=== PATIENT | female | born 2000 | race African-American/Black ===

== ENCOUNTER 2023-09-04 06:01 | Day surgery (SDC) | payer OTHER, SELFPAY ==
[2023-09-04] VITALS (8 sets, daily range): BP systolic 96–127; BP diastolic 59–87; PULSE 92–121; RESP 12–16; TEMP 36.5–37.4; O2SAT 99–100; BMI 27.6
--- NOTE | 2023-09-04 | HID_PTH ---
PATIENT: RENETTA MCQUEEN [place] [facility] [id number] AGE/SX: 23/ ROOM: RE09/04/[address]: Dr. Jenny Dockery MD : 2000 BED: DIS: 09/04/2023 SPEC #: [id number] RECD: 09/04/23 13:16 STATUS: MEHUL SHEELA #: [id number] FARHANA: 09/04/23 00:[address]: Jenny Dockery DEPT: SURGICAL PATHOLOGY RECD BY: Carroll Kramer ENTERED: 09/04/23 13:18 SP TYPE: Jovita BETTENCOURT DR: Ludivina Primary Care Phys Tissues: Axilla, NOS Procedures: Surgery Specimen Level III HEADER OPERATION: Excision, left axilla hidradenitis PRE-OP DIAGNOSIS: Hidradenitis, left axilla TISSUE SUBMITTED: Left axilla hidradenitis MICROSCOPIC DIAGNOSIS Left axilla hidradenitis, exicison: Consistent with inflamed hidradenitis. / 09/05/2023 MICROSCOPIC DESCRIPTION Slides are reviewed. GROSS DESCRIPTION Received in fixative is one container labeled with the patient's name and designated Left axilla hidradenitis. The specimen consists of an ellipse of light valadez excised skin measuring 1.5 x 0.5cm and a depth of excision measuring 1.0cm. No cutaneous mass lesions are identified. The specimen is serially sectioned and totally submitted in one cassette. / 09/04/23 TC:3 CPT:69078
[2023-09-04 06:27] LABS: Internal QC Validated? YES +Cl - CLEAR BKGD; Pregnancy, Urine Negative Negative
[2023-09-04] MEDS: Lactated Ringers 1,000 ML 15 ML IV (06:31)
--- NOTE | 2023-09-04 07:08 | HP.PCM_ITS ---
History and Physical Date of Admission: 09/04/23 Date of Service: 08/05/23 MR#: [id number] Acct: [id number] Name: RENETTA MCQUEEN Rep #: [id number] : 2000 Provider: Dr. Jenny Dockery MD Age/Sex: 23/F Location: [facility] Status: Signed Intake Vital Signs 08/04/2414:10 Height 5 ft 1 in Weight: 145 lb 6 oz BMI 27.4 BP 129/79 H Blood Pressure Location Rt brachial Position Sitting Respiration 18 Pulse 90 Pulse Source Monitor Temp 97.3 F L Temp Source Temporal Pulse Oximetry (%) 100 Oxygen Delivery Method room air Intake Visit Reasons: HIDRADENITIS SUPPURATIVA - ARMPIT Chief Complaint: hidradenitis suppurativa- L axilla Is patient in pain?: No Allergies No Known Allergies Allergy (Unverified 08/05/23 15:11) Medications minocycline 100 mg capsule mg PO QDAY 08/05/23 [History Confirmed 08/05/23] [facility] Medical History (Updated 08/06/23 @ 11:[address] Jenny Dockery MD) H/O pilonidal cyst Surgical History (Updated 08/05/23 @ 15:10 by Cherrie Posey LPN) History of removal of cyst Social History (Updated 08/05/23 @ 15:10 by Cherrie Posey LPN) Smoking Status: Never smoker alcohol intake: never substance use type: does not use HPI HPI HPI: 23-year-old female presents due to left axillary hidradenitis. Patient has been seen and treated by Dr. Randle with dermatology since beginning of June currently is on minocycline as well as applying clindamycin gel and washing with Dial antibacterial soap. Patient denies any other areas with hidradenitis did have a previous pilonidal that was excised in the past. ROS General General: No weight change, appetite, fatigue, colon cancer, breast cancer or weakness HEENT HEENT: No difficulty swallowing, eye injury, eye surgery, swollen glands or hoarseness Endo Endocrine: No thyroid disease, diabetes mellitus, thyroid cancer, Hair loss, heat intolerance or cold intolerance Skin Skin: No rash or changing moles Musc Musculoskeletal: No back problems, arthritis, rheumatoid arthritis, gout or joint pain Cardio Cardiovascular: No murmur, pacemaker, heart disease, atrial fibrillation, high blood pressure, heart attack, heart stent, palpitations, shortness of breat with exertion or chest pain Psych Psychiatric: No depression, anxiety or hearing voices Resp Respiratory: No shortness of breath, No sleep apnea, No cough, No COPD, No asthma, No emphysema and No wheezing Gastro Gastrointestinal: No abdominal pain, No nausea or vomiting, No diarrhea, No constipation, No blood in stool, No acid reflux, No hemorrhoids, No ulcers, No gallbladder problem and No black,tarry stools [place] Hematologic: No blood thinners, No blood disorders, No bleeding, No anemia and No blood clots Neuro Neurologic: No numbness, No tingling and No weakness Exam Const General: cooperative, healthy appearing, comfortable and no acute distress [facility] Head: normocephalic and atraumatic Neck Neck: supple Resp Effort & Inspection: normal respiratory effort Cardio Rate: regular rate GI Inspection: non-distended Skin Other: Left axilla with some induration mid left axilla about 8 mm in diameter. Rest of the axilla skin appears normal. Neuro General: CN's II-XI intact bilaterally Extrem General: normal to inspection Psych Mental Status: mental status grossly normal Attitude: cooperative Assessment and Plan Assessment and Plan (1) Hidradenitis: Status: Acute Comment: left axilla- localized Plan Discussed with patient the procedure of excision of left axilla hidradenitis including risk not limited to bleeding, infection, recurrent hidradenitis. Patient no further questions this time. Will schedule excision in OR with MAC. Jenny Dockery M.D. Pager: [phone] [facility] [address] [place] [address], [address] [place] [address] Office: [phone] Coding Level of Care Code Off vis,new,level 3 Diagnoses Hidradenitis L73.2 08/06/23 1149 <Electronically signed by Jenny Dockery MD> Date Jenny Dockery MD
[2023-09-04] MEDS: Cefazolin 2 GM in 0.9% Normal Saline (100mL Bag) 100 ML IV (07:28)
[2023-09-04] MEDS: Bupivacaine Mpf 0.5% 30 ML VIAL (07:55)
--- NOTE | 2023-09-04 07:55 | PCM.OPRPT ---
Report of Operation Date of Procedure: 09/04/23 Pre-Operative Diagnosis: Left axillary hidradenitis Post-Operative Diagnosis: Same Surgery/Procedure Performed:: Excision of left axillary hidradenitis Surgeon: Jenny Dockery fixed assets accountant: Emely Baron Type of Anesthesia: General/Supplemental Anesthesiologist: Margarito Fang Special Medications: Ancef 2 g IV x 1 Specimen's removed: left axillary hidradenitis Estimated Blood Loss (mL): < 10 cc Description of Procedure: Patient is brought to operating placed supine on the operating table. A timeout was completed verifying correct patient, site, positioning and special, prior to beginning procedure. Patient's left arm was abducted with appropriate padding. General anesthesia was induced. Patient's left axilla was prepped and draped in usual sterile fashion. An elliptical incision was planned around patient's area of hidradenitis along Langerhans lines. This was made with a 15 blade scalpel. Deepened with electrocautery to an area of grossly normal tissue. Specimen sent to pathology. Incision was irrigated with saline. Hemostasis was achieved with electrocautery. Incision was closed with 3 oh subdermal Vicryl sutures and skin was closed with 4-0 Monocryl. Dermabond was also placed. Patient tolerated procedure well and taken to postanesthesia care unit in stable condition. Complications none
--- NOTE | 2023-09-04 07:59 | DCINST_ITS ---
Discharge Instructions Diet Discharge Diet: No restrictions Activity Discharge Activity: May Not Drive (If taking narcotics) and May Shower Additional Activity Instructions:: Avoid strenuous activity involving the left arm for 2 to 3 days Dressing / Incision Call your doctor if your incision/area has: Continuous Slow Oozing, Sudden Increased Bleeding, Increased Pain/ Swelling, Increased Redness and Foul Smelling Discharge Additional Dressing/Incision Instructions:: Dermabond is placed. This may start to peel in 5 to 7 days which is normal. Follow Up Care Please Follow Up With: Jenny Dockery MD When: Call the office for a follow-up appointment in 2 weeks. [phone]-. Any concerns or questions after 5 PM or on the weekends call [phone]. Test Results: Test results from this visit will be discussed in further detail at your follow- up appointment, if applicable. Discharge Plan Admission Attending Provider: Jenny Dockery Primary Care Provider: Care Physician,No Primary Instructions Print Language: Cook Islander Discharge Orders/Prescriptions Prescriptions: New tramadol 50 mg tablet 50 mg PO Q6H PRN (Reason: pain) Qty: 5 0RF Continued fexofenadine [Ada Allergy] 60 mg tablet 60 mg PO DAILY Daily Multiple For Women 18 mg iron-400 mcg-500 mg Ca tablet 1 tab PO DAILY albuterol sulfate 90 mcg/actuation HFA aerosol inhaler 2 inh inhalation Q8H PRN (Reason: shortness of breath or wheezing) Disposition Disposition (needs filled in before D/C Order can be placed): Home, Self Care
== END 2023-09-04 10:53 | disposition home or self-care (01) ==
LOC: SDC 06:01 → AC 06:02
PROVIDERS: Anesthesiology; Referring Provider Surgery; Visit Provider Surgery
PROC: (CPT 38500; principal; 2023-09-04 07:15)
DX: L73.2 Hidradenitis suppurativa (principal)
CPT/HCPCS: 11450; 00400; 81025; 88304; J7120; J2405

== ENCOUNTER 2023-12-15 19:46 | Emergency (ER) | payer OTHER, SELFPAY ==
[2023-12-15 19:47] VITALS: BP 120/78; PULSE 94; RESP 16; TEMP 36.8; O2SAT 99; BMI 26.9
--- NOTE | 2023-12-15 22:20 | ED.RN ---
lwbs [id number]
== END 2023-12-15 22:15 | disposition left against medical advice (07) ==
LOC: ED 22:27
DX: R51.9 Headache, unspecified (principal)

== ENCOUNTER 2024-02-16 17:52 | Emergency (ER) | payer OTHER, SELFPAY ==
[2024-02-16 17:54] VITALS: BP 120/77; PULSE 130; RESP 18; TEMP 37.6; O2SAT 100; BMI 26.7
--- NOTE | 2024-02-16 18:05 | CM.ED ---
Social Work Reason for visit: No PCP listed Patient verified that she does not currently have a PCP, resource list provided of local physicians. Patient appreciative of information. No other concerns identified. Gabriella Moreno, DENTAL LABORATORY TECHNOLOGY TEACHER, LIGHT BULB ASSEMBLER
--- NOTE | 2024-02-16 18:17 | EDS_ITS ---
HPI <JUAN Presley - Last Filed: 02/16/24 21:31> History of Present Illness Chief Complaint: Chest Pain Narrative Narrative: 23-year-old female approximately 19 weeks states of the last few days she has had a cold with a lot of congestion, sneezing, and coughing. When she coughs she has chest pain. She is felt mildly short of breath and states she has a history of exercise-induced asthma and tried her inhaler but it is . She went to urgent care and they told her she had a fever with an ear thermometer and that her heart rate was elevated in the 130s and sent her in for evaluation. She states she felt very tired today and has not been eating or drinking much. Denies vomiting or diarrhea. Her has been progressing without issue so far and she has had a normal ultrasound and she denies abdominal pain or vaginal bleeding. [facility] <JUAN Presley - Last Filed: 02/16/24 21:31> [facility] Medical History (Updated 02/16/24 @ 19:56 by JUAN Presley) Wears glasses Alcohol use Migraine headache Loss of consciousness Syncope Seizures Asthma Non-smoker H/O pilonidal cyst Home Medications ?Medication ?Instructions ?Recorded ?Last Taken ?Type albuterol sulfate 90 mcg/actuation 2 inh inhalation Q8H PRN shortness 08/26/23 Unknown History aerosol inhaler of breath or wheezing multivit-iron 18 mg-folic acid 400 1 tab PO DAILY 08/26/23 09/03/23 History mcg-calcium 500 mg-minerals tablet (Daily Multiple For Women) albuterol sulfate 90 mcg/actuation 1 - 2 puff inhalation Q4H PRN PRN 02/16/24 Unknown Rx aerosol inhaler (Ventolin HFA) Wheezing #1 device aspirin 81 mg tablet,delayed 81 mg PO DAILY 02/16/24 Unknown History release doxylamine 10 mg-pyridoxine (vit 2 tab PO BID 02/16/24 Unknown History B6) 10 mg tablet,delayed release loratadine 10 mg tablet (Claritin) 10 mg PO DAILY 02/16/24 Unknown History ondansetron 4 mg disintegrating 4 mg PO Q8H PRN PRN nausea/vomiting 02/16/24 Unknown History tablet Allergy/AdvReac Type Severity Reaction Status Date / Time No Known Allergies Allergy Verified 12/15/23 19:49 Surgical History Hidradenitis History of removal of cyst Social History (Updated 08/05/23 @ 15:10 by Cherrie Posey LPN) Smoking Status: Never smoker alcohol intake: never substance use type: does not use ROS <JUAN Presley - Last Filed: 02/16/24 21:31> ROS ED ROS Narrative Constitutional: Positive for chills, malaise. ENT: Positive for rhinorrhea, ear pain. CVS: Negative for palpitations, syncope. Respiratory: Positive for cough. Negative for shortness of breath. GI: Negative for abdominal pain, nausea, vomiting, diarrhea. EXAM <JUAN Presley - Last Filed: 02/16/24 21:31> Physical Exam Narrative Exam Narrative: CONST: Patient sitting in no acute distress. EYES: Normal inspection. ENT: Normal inspection, moist mucous membranes. Clear rhinorrhea, normal TMs bilaterally. NECK: Normal inspection. Neck supple, no meningismus. RESP: No respiratory distress, mild expiratory wheeze throughout. CVS: Tachycardic with regular rhythm, no murmur, no gallop. ABD: Soft and nontender, no guarding or rebound, nondistended. SKIN: Color normal, no rash, warm, dry, intact. EXTREMITIES: Normal appearance, no pedal edema. NEURO: Alert and answering questions appropriately. PSYCH: Normal affect. Const Vital Signs: 02/16/24 17:54 02/16/24 18:22 02/16/24 18:25 Temperature 99.7 F H 98.7 F Temperature Source Oral Oral Pulse Rate 130 H Respiratory Rate 18 Respiratory Effort Normal Non-Labored Respiratory Pattern Blood Pressure 120/77 Blood Pressure Mean 91 Pulse Ox 100 Oxygen Delivery Method Room Air 02/16/24 18:44 02/16/24 20:00 02/16/24 21:00 Temperature Temperature Source Pulse Rate 113 H 124 H 119 H Respiratory Rate 20 H 19 H 12 Respiratory Effort Respiratory Pattern Normal Blood Pressure 123/69 H 113/84 H Blood Pressure Mean 87 93 Pulse Ox Oxygen Delivery Method Room Air 02/16/24 21:28 Temperature 98 F Temperature Source Pulse Rate 122 H Respiratory Rate 16 Respiratory Effort Respiratory Pattern Blood Pressure 110/80 Blood Pressure Mean 90 Pulse Ox 98 Oxygen Delivery Method <Dr. Walt Mcknight DO - Last Filed: 02/17/24 01:24> Physical Exam Const Vital Signs: 02/16/24 17:54 02/16/24 18:22 02/16/24 18:25 Temperature 99.7 F H 98.7 F Temperature Source Oral Oral Pulse Rate 130 H Respiratory Rate 18 Respiratory Effort Normal Non-Labored Respiratory Pattern Blood Pressure 120/77 Blood Pressure Mean 91 Pulse Ox 100 Oxygen Delivery Method Room Air 02/16/24 18:44 02/16/24 20:00 02/16/24 21:00 Temperature Temperature Source Pulse Rate 113 H 124 H 119 H Respiratory Rate 20 H 19 H 12 Respiratory Effort Respiratory Pattern Normal Blood Pressure 123/69 H 113/84 H Blood Pressure Mean 87 93 Pulse Ox Oxygen Delivery Method Room Air 02/16/24 21:28 Temperature 98 F Temperature Source Pulse Rate 122 H Respiratory Rate 16 Respiratory Effort Respiratory Pattern Blood Pressure 110/80 Blood Pressure Mean 90 Pulse Ox 98 Oxygen Delivery Method MDM <JUAN Presley - Last Filed: 02/16/24 21:31> [facility] Narrative Medical decision making narrative: History gathered from: Patient, spouse Differential included but not limited to viral URI, asthma exacerbation, pneumonia, PE Patient has had URI symptoms over the last few days and chest pain with coughing. She is 19 weeks . She was sent over from urgent care for evaluation due to elevated heart rate. She does appear ill but nontoxic. She is tachycardic at 130 in normal sinus rhythm with otherwise normal vital signs. Oral temp is normal at 98.7. She has rhinorrhea and congestion on exam as well as mild expiratory wheezing and I suspect URI with bronchospasm. Viral swab for COVID/flu/RSV is negative. CBC and BMP were unremarkable. She was treated with IV fluids, DuoNeb, and Tylenol but remained persistently tachycardic. I discussed with her that although I do think this is a URI makes her at higher risk for blood clot and due to persistent tachycardia we should do further testing. D-dimer was high so CT is indicated. I discussed the risks and benefits of this procedure during and she would like to proceed. CTA of the chest shows no blood clot and no pneumonia or other acute process. After 2 L of IV fluids I rechecked the patient at around 9:30 PM her heart rate was 105. She is comfortable going home and following up with her TRADE CLERK. She will continue oral hydration and Tylenol as needed. She was provided a refill of her albuterol inhaler and discharged in stable condition. Lab Data Attestation: I reviewed the patient's lab results. Labs: Laboratory Results - last 24 hr 02/16/24 18:40 WBC 9.6 RBC 4.92 Hgb 12.7 Hct 39.1 MCV 79.5 L MCH 25.8 L MCHC 32.5 RDW Std Deviation 40.6 RDW Coeff of Kenny 14.1 Plt Count 244 MPV 10.7 Immature Gran % (Auto) 0.300 Neut % (Auto) 72.8 H Lymph % (Auto) 12.8 L [place] % (Auto) 9.6 Eos % (Auto) 4.4 Baso % (Auto) 0.1 Absolute Neuts (auto) 7.0 Absolute Lymphs (auto) 1.22 Nucleated RBC % 0 D-Dimer Quant (PE/DVT) 1.34 H* Sodium 136 Potassium 3.5 Chloride 104 Carbon Dioxide 25.0 Anion Gap 7 BUN 5 L Creatinine 0.61 Estim Creat Clear Calc 121.98 Est GFR (MDRD) Af Amer 153 Est GFR (MDRD) Non-Af 127 BUN/Creatinine Ratio 8.2 L Glucose 81 Calcium 9.1 Radiography Diagnostic Testing: Clinical Impression(s) from Imaging Studies Chest CTA 02/16/24 20:32 IMPRESSION: Normal CTA chest examination, without a demonstrated pulmonary embolism or arterial dissection. Electronically Signed: Duarte Quezada MD at 21:22 EST Reading Location ID and State: [facility] / [place] Tel , Service support , EKG Initial EKG: Attestation: I personally reviewed and interpreted this EKG as follows: Comments: Sinus tachycardia at 117 bpm Normal intervals, no acute ischemic changes <Dr. Walt Mcknight, DO - Last Filed: 02/17/24 01:24> MDM MDM Narrative Medical decision making narrative: History gathered from: Patient, spouse Differential included but not limited to viral URI, asthma exacerbation, pneumonia, PE Patient has had URI symptoms over the last few days and chest pain with coughing. She is 19 weeks . She was sent over from urgent care for evaluation due to elevated heart rate. She does appear ill but nontoxic. She is tachycardic at 130 in normal sinus rhythm with otherwise normal vital signs. Oral temp is normal at 98.7. She has rhinorrhea and congestion on exam as well as mild expiratory wheezing and I suspect URI with bronchospasm. Viral swab for COVID/flu/RSV is negative. CBC and BMP were unremarkable. She was treated with IV fluids, DuoNeb, and Tylenol but remained persistently tachycardic. I discussed with her that although I do think this is a URI makes her at higher risk for blood clot and due to persistent tachycardia we should do further testing. D-dimer was high so CT is indicated. I discussed the risks and benefits of this procedure during and she would like to proceed. CTA of the chest shows no blood clot and no pneumonia or other acute process. After 2 L of IV fluids I rechecked the patient at around 9:30 PM her heart rate was 105. She is comfortable going home and following up with her TRADE CLERK. She will continue oral hydration and Tylenol as needed. She was provided a refill of her albuterol inhaler and discharged in stable condition. Supervisory Physician Note Patient was seen and examined with the Advanced Practice Provider. Nursing notes and vital signs have been reviewed. Pertinent old records have been reviewed. I agree with the essential elements of the RO's history, physical exam, assessment, and plan. The differential diagnosis and management options were discussed with the RO. I participated in determining and agree with the management, procedures, final impression and disposition as documented. See changes noted by me. Please see addendum or separate note for any additional details. 23-year-old female who is and 19 weeks presents for evaluation of cold-like symptoms. Endorses congestion, cough, general malaise for past few days. Denies sick contacts. Endorses chest tightness when she coughs but denies true chest pain. Mildly short of breath at times. Has a history of exercise-induced asthma. Not on a maintenance inhaler. Patient endorses a fever of 100.6 and decreased p.o. intake. Denies any headache, nausea, vomiting, diarrhea, dysuria, abdominal pain, vaginal bleeding. Was sent to the ED by urgent care due to fever and tachycardia. Gen: A&O x3, NAD Head: Normocephalic, atraumatic Eyes: No sclera icterus, conjunctiva clear, PERRL, EOMI ENT: TMs clear BL, mildly dry mucous membranes, posterior oropharynx unremarkable, uvula midline, tonsils not enlarged, no tonsillar exudates, + nasal congestion Neck: Trachea midline, No JVD, Full ROM, No meningismus CV: Tachycardic, regular rhythm, no murmurs, no peripheral edema Resp: Lungs CTA BL, mild expiratory wheeze intermittently, + dry cough GI: Abd soft, non-distended, non-tender, no r/r/g Musc: Full ROM, no deformity Skin: Warm, dry, no rash Neuro: Alert, oriented, grossly intact, sensation intact Psych: Cooperative, appropriate mood and affect Differential diagnosis includes but is not limited to viral URI, COVID-19 infection, influenza, asthma exacerbation, pneumonia, PE On presentation, patient is tachycardic into the 130s with a temperature of 99.7 ?F. She has not taken any medication today such as Tylenol. She does endorse decreased p.o. intake today. I suspect that her tachycardia is multifactorial in response to her URI type symptoms as well as decreased p.o. intake. NS bolus and Tylenol ordered. Patient has intermittent mild expiratory wheeze. No overt asthma exacerbation to require steroids, patient is also . DuoNeb ordered. Basic labs ordered including COVID, flu, RSV testing. CBC without leukocytosis or anemia. BMP relatively unremarkable. No JUAN FRANCISCO. COVID, flu, RSV negative. On reevaluation, patient is no longer wheezing. She states that her chest feels less tight. However patient still remains tachycardic into the 120s. Although I suspect her symptoms are secondary to viral type symptoms cannot fully rule out PE therefore D-dimer ordered. D-dimer elevated therefore CTA chest ordered. Patient was given the risk and benefits to a CTA chest given her and consented. Another NS bolus ordered. CTA chest negative for PE, pneumonia, acute process. On reevaluation, patient again endorses that her shortness of breath has improved. Her heart rate has improved to 105. Patient comfortable with discharge home. Follow-up with PCP and TRADE CLERK. Return precautions explained. Patient was given a new albuterol inhaler prescription. EKG: Interpreted by me/EM physician: EKG shows sinus tachycardia with a heart rate of 117. No acute ischemic changes. Impression: 1. Viral syndrome 2. Lab Data Labs: Laboratory Results - last 24 hr 02/16/24 18:40 WBC 9.6 RBC 4.92 Hgb 12.7 Hct 39.1 MCV 79.5 L MCH 25.8 L MCHC 32.5 RDW Std Deviation 40.6 RDW Coeff of Kenny 14.1 Plt Count 244 MPV 10.7 Immature Gran % (Auto) 0.300 Neut % (Auto) 72.8 H Lymph % (Auto) 12.8 L [place] % (Auto) 9.6 Eos % (Auto) 4.4 Baso % (Auto) 0.1 Absolute Neuts (auto) 7.0 Absolute Lymphs (auto) 1.22 Nucleated RBC % 0 D-Dimer Quant (PE/DVT) 1.34 H* Sodium 136 Potassium 3.5 Chloride 104 Carbon Dioxide 25.0 Anion Gap 7 BUN 5 L Creatinine 0.61 Estim Creat Clear Calc 121.98 Est GFR (MDRD) Af Amer 153 Est GFR (MDRD) Non-Af 127 BUN/Creatinine Ratio 8.2 L Glucose 81 Calcium 9.1 Radiography Diagnostic Testing: Clinical Impression(s) from Imaging Studies Chest CTA 02/16/24 20:32 IMPRESSION: Normal CTA chest examination, without a demonstrated pulmonary embolism or arterial dissection. Electronically Signed: Duarte Quezada MD at 21:22 EST Reading Location ID and State: [address] [place] [address] Tel , Service support , Discharge Plan Triage Chief Complaint: Chest Pain ED Midlevel Provider: Farideh Ulloa ED Provider: Walt Mcknight Dx/Rx/DC Orders Clinical Impression: Upper respiratory infection, Acute bronchospasm Instructions: ED URI, Viral W/ Wheezing (Adult) Prescriptions: New albuterol sulfate [Ventolin HFA] 90 mcg/actuation HFA aerosol inhaler 1 - 2 puff inhalation Q4H PRN PRN (Reason: Wheezing) Qty: 1 0RF No Action Daily Multiple For Women 18 mg iron-400 mcg-500 mg Ca tablet 1 tab PO DAILY albuterol sulfate 90 mcg/actuation HFA aerosol inhaler 2 inh inhalation Q8H PRN (Reason: shortness of breath or wheezing) loratadine [Claritin] 10 mg tablet 10 mg PO DAILY aspirin 81 mg tablet,delayed release (DR/EC) 81 mg PO DAILY ondansetron 4 mg tablet,disintegrating 4 mg PO Q8H PRN PRN (Reason: nausea/vomiting) doxylamine-pyridoxine (vit B6) 10-10 mg tablet,delayed release (DR/EC) 2 tab PO BID Primary Care Provider: Care Physician,No Primary Referrals: Care Physician,No Primary [Primary Care Provider] - Activity Restrictions/Additional Instructions: Drink plenty of fluids, use the albuterol inhaler as needed, and you contact your TRADE CLERK office about if any other cold medications are appropriate. Print Language: Hebrew Disposition Disposition: Home, Self Care Discharge Date/Time: 02/16/24 21:36
[2024-02-16 18:25] VITALS: TEMP 37.1
--- NOTE | 2024-02-16 18:29 | EKG12_ITS ---
Test Reason : CP Blood Pressure : */* mmHG Vent. Rate : 117 BPM Atrial Rate : 117 BPM P-R Int : 152 ms QRS Dur : 72 ms QT Int : 312 ms P-R-T Axes : 60 15 34 degrees QTcB Int : 435 ms Sinus tachycardia Otherwise normal ECG Confirmed by Jake Grant ([id number]), editor city GIN BUSTILLO ([id number]) on 02/17/2024 9:21:15 AM Referred By: Walt Mcknight Confirmed By: Jake Grant
[2024-02-16] MEDS: 0.9% Normal Saline (1000mL) 1,000 ML 999 ML IV ×2 (18:40→20:20)
[2024-02-16] MEDS: Acetaminophen 500 MG Tablet 1000 MG PO (18:42)
[2024-02-16 18:44] VITALS: PULSE 113; RESP 20
[2024-02-16] MEDS: Ipratropium/Albuterol Sulfate 3 ML AMPUL.NEB INHALATION (18:44)
[2024-02-16 18:59] LABS: Absolute Lymphocyte Count 1.22 X10^3/uL (0.83-4.51); Basophil# 0.01 X10^3/uL; Basophil% 0.1 % (0-1); Eosinophil# 0.42 X10^3/uL; Eosinophils% 4.4 % (0-5); Hematocrit 39.1 % (37-47); Hemoglobin 12.7 g/dL (12.0-15.0); Lymphocyte # 1.22 X10^3/ul (0.83-4.51); Lymphocyte % 12.8 % (19-41); Mean Corp Hgb Conc 32.5 g/dL (32-36); Mean Corpuscular Hgb 25.8 pg (27.0-32.0); Mean Corpuscular Volume 79.5 fL (81-99); Mean Platelet Vol. 10.7 fl (6.2-12.0); Monocyte# 0.92 X10^3/uL; Monocyte% 9.6 % (0-10); NRBC Flagged by Analyzer 0 % (0-5); Neutrophil # 6.96 X10^3/uL (2.7-7.7); Neutrophil % 72.8 % (47-70); Platelet Count 244 K/mm3 (150-450); RBC Distribution Width CV 14.1 % (11.6-14.6); RBC Distribution Width SD 40.6 fl (35.1-43.9); Red Blood Count 4.92 M/mm3 (4.2-5.4); White Blood Count 9.6 K/mm3 (4.4-11.0)
[2024-02-16 19:18] LABS: Anion Gap 7 (5-15); BUN 5 mg/dL (7-18); BUN/Creat Ratio 8.2 RATIO (10-20); Calcium,Total 9.1 mg/dL (8.5-10.1); Chloride 104 mmol/L (98-107); Creatinine, Serum 0.61 mg/dL (0.55-1.02); EST Glomerular Filtration Rate 127 mL/min (>60); Est Glom Filt Rate - Afr Amer 153 mL/min (>60); Estimated Creatinine Clearance 121.98 ml/min; Glucose 81 mg/dL (74-106); Potassium 3.5 mmol/L (3.5-5.1); Sodium Level 136 mmol/L (136-145)
[2024-02-16 20:00] VITALS: BP 123/69; PULSE 124; RESP 19
[2024-02-16 20:27] LABS: D-Dimer Quantitative (DVT/PE) 1.34 FEU/ug/m (0.27-0.49)
--- NOTE | 2024-02-16 20:32 | CT_ITS ---
STUDY: CTA CHEST REASON FOR EXAM: Female, 23 years old. cough, dyspnea, high d dimer RADIATION DOSAGE (If Supplied By Facility): CTDIvol = ( 10.16 ) mGy, DLP = ( 382.81 ) mGycm TECHNIQUE: The examination was performed with the intravenous administration of IV 100mL Isovue-370. Post-processing of the angiographic images was performed, with multiplanar reformation and 3D reconstruction. Individualized dose optimization techniques were used for this CT. COMPARISON: None. FINDINGS: Normal enhancement of the main pulmonary artery and right and left pulmonary arteries. Normal enhancement of the bilateral peripheral pulmonary arteries. There is no demonstrated pulmonary embolism. Normal thoracic aorta and visualized great vessels. There is no demonstrated aortic dissection. Normal heart and pericardium. Normal mediastinum. Normal hilar regions. Normal visualized trachea and bronchi. The lungs are well expanded. Normal pulmonary parenchyma. Normal pleura. Normal chest wall structures. Normal osseous structures. Normal visualized upper abdomen. CT/CTA Chest W/WO Contrast IMPRESSION: Normal CTA chest examination, without a demonstrated pulmonary embolism or arterial dissection. Electronically Signed: Duarte Quezada MD at 21:22 [facility] ,
[2024-02-16 21:00] VITALS: BP 113/84; PULSE 119; RESP 12
[2024-02-16 21:28] VITALS: BP 110/80; PULSE 122; RESP 16; TEMP 36.6; O2SAT 98
== END 2024-02-16 21:36 | disposition home or self-care (01) ==
PROVIDERS: Physician Assistant; Emergency Provider Surgery; Referring Provider Surgery; Visit Provider Surgery
DX: O99.512 Diseases of the respiratory system complicating pregnancy, second trimester (principal); J98.01 Acute bronchospasm; J06.9 Acute upper respiratory infection, unspecified; Z3A.19 19 weeks gestation of pregnancy
CPT/HCPCS: 71275; 80048; 85025; 85379; 87631; 93005; 94640; 96360; 96361; 99284; J7030; Q9967; A4216

== ENCOUNTER 2024-02-20 18:33 | Emergency (ER) | payer OTHER, SELFPAY ==
[2024-02-20 18:33] VITALS: BP 132/78; PULSE 106; RESP 16; TEMP 36.8; O2SAT 97; BMI 26.4
[2024-02-20 18:59] LABS: Mucous, Urine 0 SEEN /hpf (<or=2+); Red Blood Cells-Urine 0 SEEN /hpf (0-5)
[2024-02-20 19:01] LABS: Color, Urine Yellow (Yellow); Glucose, Dipstick Normal (Normal); Leukocyte Esterase-Dipstick Negative /ul (Negative); Nitrite-Dipstick Negative (Negative); Occult Blood-Urine Negative /ul (Negative); Protein-Dipstick Negative (Negative); Urine Bilirubin Dipstick Negative (Negative); Urine Clarity Clear (Clear); Urine Urobilinogen Normal (Normal)
[2024-02-20 19:02] LABS: Ketone-Dipstick 150 mg/dl (Negative)
[2024-02-20 19:10] LABS: Bacteria 2+ /hpf (None Seen); Squamous Epithelial Cells - UA 0-5 SEEN /hpf (5-10); White Blood Cells 0-5 SEEN /hpf (0-5); Yeast-Urine RARE /hpf (None Seen)
[2024-02-20] MEDS: 0.9% Normal Saline (1000mL) 1,000 ML 999 ML IV (19:13)
[2024-02-20] MEDS: Metoclopramide 10 MG/2 ML Vial 5 MG IV (19:14)
[2024-02-20 19:17] LABS: Absolute Neutrophil Count 7.3 X10^3/uL (2.0-7.7); Basophil# 0.02 X10^3/uL; Basophil% 0.2 % (0-1); Eosinophil# 0.18 X10^3/uL; Eosinophils% 1.6 % (0-5); Hematocrit 38.2 % (37-47); Hemoglobin 12.5 g/dL (12.0-15.0); Lymphocyte % 29.1 % (19-41); Mean Corp Hgb Conc 32.7 g/dL (32-36); Mean Corpuscular Hgb 26.2 pg (27.0-32.0); Mean Corpuscular Volume 79.9 fL (81-99); Mean Platelet Vol. 10.5 fl (6.2-12.0); Monocyte# 0.52 X10^3/uL; Monocyte% 4.6 % (0-10); NRBC Flagged by Analyzer 0 % (0-5); Neutrophil # 7.26 X10^3/uL (2.7-7.7); Neutrophil % 64.1 % (47-70); Platelet Count 267 K/mm3 (150-450); RBC Distribution Width CV 14.1 % (11.6-14.6); RBC Distribution Width SD 40.9 fl (35.1-43.9); Red Blood Count 4.78 M/mm3 (4.2-5.4); White Blood Count 11.3 K/mm3 (4.4-11.0)
[2024-02-20 19:33] LABS: ALB/GLOB Ratio 0.7 RATIO (0.9-2.4); AST(SGOT) 18 U/L (15-37); Alanine Aminotransfer ALT/SGPT 24 U/L (13-56); Albumin, Serum 3.3 g/dL (3.2-5.0); Alkaline Phosphatase 90 U/L (45-117); Anion Gap 9 (5-15); BUN 6 mg/dL (7-18); BUN/Creat Ratio 11.2 RATIO (10-20); Calcium,Total 9.2 mg/dL (8.5-10.1); Chloride 103 mmol/L (98-107); Creatinine, Serum 0.54 mg/dL (0.55-1.02); EST Glomerular Filtration Rate 147 mL/min (>60); Est Glom Filt Rate - Afr Amer 178 mL/min (>60); Estimated Creatinine Clearance 135.97 ml/min; Globulin 4.5 g/dL (2.2-4.2); Glucose 71 mg/dL (74-106); Lipase 44 U/L (13-75); Potassium 3.2 mmol/L (3.5-5.1); Protein, Total 7.8 g/dL (6.4-8.2); Sodium Level 136 mmol/L (136-145)
[2024-02-20] MEDS: Cephalexin 250 MG Capsule 500 MG PO (20:50)
[2024-02-20 20:52] VITALS: BP 108/65; PULSE 84; RESP 18; TEMP 36.8; O2SAT 98
== END 2024-02-20 20:56 | disposition home or self-care (01) ==
PROVIDERS: Nurse Practitioner; Emergency Provider Emergency Medicine; Visit Provider Emergency Medicine
DX: O21.9 Vomiting of pregnancy, unspecified (principal); Z3A.20 20 weeks gestation of pregnancy; O99.891 Other specified diseases and conditions complicating pregnancy; R82.71 Bacteriuria
CPT/HCPCS: 80053; 81001; 83690; 85025; 87086; 87088; 96361; 96374; 99283; J7030

== ENCOUNTER 2024-05-22 13:45 | Outpatient (CLI) | payer OTHER, SELFPAY ==
[2024-05-22 13:58] VITALS: BP 128/81; PULSE 80
[2024-05-22 14:31] LABS: Hemoglobin 11.8 g/dL (12.0-15.0); Mean Corp Hgb Conc 32.8 g/dL (32-36); Mean Corpuscular Hgb 26.9 pg (27.0-32.0); Mean Corpuscular Volume 82.2 fL (81-99); Platelet Count 182 K/mm3 (150-450); RBC Distribution Width CV 15.3 % (11.6-14.6); RBC Distribution Width SD 45.3 fl (35.1-43.9); Red Blood Count 4.38 M/mm3 (4.2-5.4)
[2024-05-22 14:32] VITALS: BMI 31.1
[2024-05-22 14:42] LABS: Creatinine, Urine (random) < 13.00 mg/dL (NO RANGE EST.); Protein, Urine (Random) < 6.0 mg/dL (<11.9)
[2024-05-22 14:44] VITALS: BP 125/78; PULSE 81
[2024-05-22 14:52] LABS: AST(SGOT) 43 U/L (15-37); Alanine Aminotransfer ALT/SGPT 27 U/L (13-56); Creatinine, Serum 0.56 mg/dL (0.55-1.02); EST Glomerular Filtration Rate 141 mL/min (>60); Est Glom Filt Rate - Afr Amer 171 mL/min (>60); Estimated Creatinine Clearance 142.11 ml/min; Uric Acid 5.3 mg/dL (2.6-6.0)
[2024-05-22 15:03] VITALS: RESP 16; TEMP 36.9
--- NOTE | 2024-05-22 15:05 | OB.TRI.NOTE ---
HPI - General HPI Narrative RENETTA MCQUEEN, is a 24 F G1 at 33 weeks who presents to triage with ankle swelling. Maternal Data Information GATO Calculator Estimated Delivery Date Method Current WG Current Estimate 07/09/24 Manual 33w 1d PFSH PFSH Medical History (Updated 05/22/24 @ 15:06 by Desirae Huynh CNM) Wears glasses Alcohol use Migraine headache Loss of consciousness Syncope Seizures Asthma Non-smoker H/O pilonidal cyst Home Medications ?Medication ?Instructions ?Recorded ?Last Taken ?Type albuterol sulfate 90 mcg/actuation 2 inh inhalation Q8H PRN shortness 08/26/23 Unknown History aerosol inhaler of breath or wheezing multivit-iron 18 mg-folic acid 400 1 tab PO DAILY 08/26/23 09/03/23 History mcg-calcium 500 mg-minerals tablet (Daily Multiple For Women) albuterol sulfate 90 mcg/actuation 1 - 2 puff inhalation Q4H PRN PRN 02/16/24 Unknown Rx aerosol inhaler (Ventolin HFA) Wheezing #1 device aspirin 81 mg tablet,delayed 81 mg PO DAILY 02/16/24 Unknown History release doxylamine 10 mg-pyridoxine (vit 2 tab PO DAILY 02/16/24 Unknown History B6) 10 mg tablet,delayed release loratadine 10 mg tablet (Claritin) 10 mg PO DAILY PRN allergy symptoms 02/16/24 Unknown History ondansetron 4 mg disintegrating 4 mg PO Q8H PRN PRN nausea/vomiting 02/16/24 Unknown History tablet cephalexin 500 mg capsule 500 mg PO Q12H #9 caps 02/20/24 Unknown Rx metoclopramide HCl 10 mg tablet 10 mg PO Q6H PRN nausea and 02/20/24 Unknown Rx (Reglan) vomiting #14 tabs Allergy/AdvReac Type Severity Reaction Status Date / Time No Known Allergies Allergy Verified 02/20/24 18:33 Surgical History Hidradenitis History of removal of cyst Social History (Updated 08/05/23 @ 15:10 by Cherrie Posey LPN) Smoking Status: Never smoker alcohol intake: never substance use type: does not use ROS Eyes Eyes: Denies blurry vision Cardiovascular Cardiovascular: Reports none; Denies chest pain at rest, chest pain with activity or dizziness Respiratory/Chest Respiratory/Chest: Denies cough or dyspnea Gastrointestinal Gastrointestinal: Reports none and other; Denies diarrhea or vomiting Genitourinary Genitourinary: Denies dysuria Musculoskeletal Musculoskeletal: Reports none Integumentary Integumentary: Reports none; Denies rash Neurologic Neurologic: Denies dizziness, headache(s) or other visual disturbances Psychiatric Psychiatric: Reports none Physical Exam Const alert and no apparent distress General Appearance: cooperative Orientation / Consciousness: awake Exam Limitations: no limitations HEENT normocephalic Eyes General Eye: normal appearance of both eyes Neck full ROM Chest inspection of chest normal Resp normal respiratory effort and normal air movement Effort and Inspection: symmetric chest movement Auscultation: clear to auscultation bilaterally Cardio regular rate GI soft to palpation, non-tender and non-distended Inspection: and other Back/Spine normal ROM Extremity full ROM, normal capillary refill and no calf tenderness Skin no rashes or lesions noted Neuro oriented x3 and CN's II-XII intact bilaterally Psych mental status grossly normal NST FHR Rate Baby A Baseline: 150 Variability:: Moderate Accelerations:: 15 x 15 Decelerations:: None NST Reactive:: Yes Uterine Activity:: none Assessment & Plan (1) Bilateral swelling of feet and ankles: (2) 33 weeks gestation of : PLAN: Plan PIH labs- normal BP 120-130/70-80 Minimal swelling in ankles and feet Non pitting Round ligament pain D/C home with preeclampsia precautions and follow up in office
== END 2024-05-22 15:32 | disposition home or self-care (01) ==
LOC: WPOUT 13:53 → WP 13:53
PROVIDERS: Visit Provider Advanced Practice Midwife
DX: O99.891 Other specified diseases and conditions complicating pregnancy (principal); M25.471 Effusion, right ankle; M25.472 Effusion, left ankle; M25.474 Effusion, right foot; M25.475 Effusion, left foot; Z3A.33 33 weeks gestation of pregnancy
CPT/HCPCS: 36415; 59025; 59050; 82565; 82570; 84156; 84450; 84460; 84550; 85027; 99221; G0378

== ENCOUNTER 2024-06-22 18:05 | Outpatient (CLI) | payer OTHER, SELFPAY | END 2024-06-22 18:58 | disposition home or self-care (01) | LOC: WPOUT 18:08 → WP 18:09 | PROVIDERS: Visit Provider Advanced Practice Midwife | DX: Z00.00 Encounter for general adult medical examination without abnormal findings (principal) ==

== ENCOUNTER 2024-06-28 01:00 | Inpatient (IN) | payer OTHER, SELFPAY ==
[2024-06-27] VITALS (13 sets, daily range): BP systolic 138–157; BP diastolic 85–106; PULSE 78–96; O2SAT 97; BMI 30.7
--- NOTE | 2024-06-27 20:35 | OB.TRI.NOTE ---
HPI - General General Date of Admission: 06/28/24 HPI Narrative RENETTA MCQUEEN, is a 24 F at 38.2 weeks gestation who presents to triage with lower abdominal discomfort and cramps that started earlier today. Maternal Data Information GATO Calculator Estimated Delivery Date Method Current WG Current Estimate 07/09/24 Manual 38w 3d PFSH PFS Medical History (Updated 06/27/24 @ 22:40 by Desirae Huynh CNM) Headache Gestational diabetes Wears glasses Alcohol use Migraine headache Loss of consciousness Syncope Seizures Asthma Non-smoker H/O pilonidal cyst Home Medications ?Medication ?Instructions ?Recorded ?Last Taken ?Type albuterol sulfate 90 mcg/actuation 2 inh inhalation Q8H PRN shortness 08/26/23 Unknown History aerosol inhaler of breath or wheezing multivit-iron 18 mg-folic acid 400 1 tab PO DAILY 08/26/23 06/27/24 History mcg-calcium 500 mg-minerals tablet (Daily Multiple For Women) albuterol sulfate 90 mcg/actuation 1 - 2 puff inhalation Q4H PRN PRN 02/16/24 Unknown Rx aerosol inhaler (Ventolin HFA) Wheezing #1 device aspirin 81 mg tablet,delayed 81 mg PO DAILY 02/16/24 06/26/24 History release doxylamine 10 mg-pyridoxine (vit 2 tab PO DAILY 02/16/24 06/26/24 History B6) 10 mg tablet,delayed release loratadine 10 mg tablet (Claritin) 10 mg PO DAILY PRN allergy symptoms 02/16/24 Unknown History ondansetron 4 mg disintegrating 4 mg PO Q8H PRN PRN nausea/vomiting 02/16/24 Unknown History tablet cephalexin 500 mg capsule 500 mg PO Q12H #9 caps 02/20/24 Unknown Rx Held on 06/27/24. Instructions: Order Completed metoclopramide HCl 10 mg tablet 10 mg PO Q6H PRN nausea and 02/20/24 Unknown Rx (Reglan) vomiting #14 tabs ferrous sulfate 325 mg (65 mg 325 mg PO QODAY 06/27/24 06/26/24 History iron) tablet (Feosol) Allergy/AdvReac Type Severity Reaction Status Date / Time No Known Allergies Allergy Verified 02/20/24 18:33 Surgical History (Updated 06/27/24 @ 22:16 by Maryellen Fournier) Hx of removal of cyst Hx of removal of cyst S/P pilonidal cyst excision History of removal of cyst Hidradenitis Social History (Updated 08/05/23 @ 15:10 by Cherrie Posey LPN) Smoking Status: Never smoker alcohol intake: never substance use type: does not use History Elective abortions Hx Para 0 Spontaneous abortions Hx # Term Pregnancies Ectopic pregnancies Hx # Pregnancies Multiple births # of living children ROS Eyes Eyes: Denies blurry vision ENT HEENT: Denies dizziness or headache(s) Cardiovascular Cardiovascular: Reports none; Denies chest pain at rest, chest pain with activity or dizziness Respiratory/Chest Respiratory/Chest: Denies cough or dyspnea Gastrointestinal Gastrointestinal: Reports none and other; Denies diarrhea or vomiting Genitourinary Genitourinary: Denies dysuria Musculoskeletal Musculoskeletal: Reports none Integumentary Integumentary: Reports none; Denies rash Neurologic Neurologic: Denies dizziness, headache(s) or other visual disturbances Psychiatric Psychiatric: Reports none Physical Exam Const alert and no apparent distress General Appearance: cooperative Orientation / Consciousness: awake Exam Limitations: no limitations HEENT normocephalic Head and Scalp: normal to inspection Eyes General Eye: normal appearance of both eyes Neck full ROM Lymph Lymphatic: no lymphadenopathy noted Chest inspection of chest normal Resp normal respiratory effort and normal air movement Effort and Inspection: symmetric chest movement Auscultation: clear to auscultation bilaterally Cardio regular rate GI soft to palpation, non-tender and non-distended Inspection: and other Manual OB Exam: presentation cephalic Back/Spine normal ROM Extremity full ROM, normal capillary refill and no calf tenderness Skin no rashes or lesions noted General Skin Exam: no breakdown Neuro oriented x3 and CN's II-XII intact bilaterally Psych mental status grossly normal NST FHR Rate Baby A Baseline: 140 Variability:: Moderate Accelerations:: 15 x 15 Decelerations:: None NST Reactive:: Yes FHR Category:: Category I Uterine Activity:: TOCO reading every 2-3 minutes Assessment & Plan (1) 38 weeks gestation of : (2) GDM (gestational diabetes mellitus), class A1: (3) Elevated blood pressure complicating , antepartum: (4) Uterine contractions: PLAN: Plan CE 1.5/80/-2 Denies headache, vision changes, SOB or CP Blood pressures elevated and ranging- 138-157/89-106 PIH labs collected- normal Will continue to monitor / extended monitoring at this time Dr. Webb involved with plan of care
[2024-06-27 22:06] LABS: Hematocrit 38.8 % (37-47); Hemoglobin 12.6 g/dL (12.0-15.0); Mean Corp Hgb Conc 32.5 g/dL (32-36); Mean Corpuscular Volume 83.3 fL (81-99); Mean Platelet Vol. 12.6 fl (6.2-12.0); Platelet Count 172 K/mm3 (150-450); RBC Distribution Width SD 44.9 fl (35.1-43.9); Red Blood Count 4.66 M/mm3 (4.2-5.4); White Blood Count 10.8 K/mm3 (4.4-11.0)
[2024-06-27 22:28] LABS: AST(SGOT) 27 U/L (<=31); Alanine Aminotransfer ALT/SGPT 23 U/L (<=34); Creatinine, Serum 0.87 mg/dL (0.70-1.20); EST Glomerular Filtration Rate 95 (>60); Estimated Creatinine Clearance 94.36 ml/min (50-250); Protein, Urine (Random) 7.6 mg/dL (0.0-12.0); Protein:Creat Ratio 145 mg/g CRE (0-200)
[2024-06-27 22:45] LABS: Uric Acid 6.4 mg/dL (2.6-6.0)
[2024-06-28] VITALS (83 sets, daily range): BP systolic 126–175; BP diastolic 64–110; PULSE 76–121; RESP 16–18; TEMP 36.6–37.3; O2SAT 93–100
[2024-06-28 01:47] LABS: Syphilis Antibodies Nonreactive (Nonreactive)
[2024-06-28 02:03] LABS: Bedside Glucose 80 mg/dL (74-106)
[2024-06-28] MEDS: Oxytocin 15 Units/NS 250ml 15 UNITS/250 ML IV.SOLN 2 UNITS IV (02:12)
[2024-06-28] MEDS: Lactated Ringers 1,000 ML 50 ML IV (02:12)
--- NOTE | 2024-06-28 02:36 | HP.PCM.OB_ITS ---
HPI - General General Date of Admission: 06/28/24 HPI Narrative RENETTA MCQUEEN, is a 24 F who presented to triage for contractions. Blood pressures ranging 140-150's/80-90's. Maternal Data Information GATO Calculator Estimated Delivery Date Method Current WG Current Estimate 07/09/24 Manual 38w 3d PFSH [facility] Medical History (Updated 06/28/24 @ 02:39 by Desirae Huynh CNM) Headache Gestational diabetes Wears glasses Alcohol use Migraine headache Loss of consciousness Syncope Seizures Asthma Non-smoker H/O pilonidal cyst Home Medications ?Medication ?Instructions ?Recorded ?Last Taken ?Type albuterol sulfate 90 mcg/actuation 2 inh inhalation Q8 H PRN shortness 08/26/23 Unknown History aerosol inhaler of breath or wheezing multivit-iron 18 mg-folic acid 400 1 tab PO DAILY 08/1206/27/24 History mcg-calcium 500 mg-minerals tablet (Daily Multiple For Women) albuterol sulfate 90 mcg/actuation 1 - 2 puff inhalati on Q4H PRN PRN 02/16/24 Unknown Rx aerosol inhaler (Ventolin HFA) Wheezing #1 device aspirin 81 mg tablet,delayed 81 mg PO DAILY 02/16/24 0 06/26/24 History release doxylamine 10 mg-pyridoxine (vit 2 tab PO DAILY 06/26/24 History B6) 10 mg tablet,delayed release loratadine 10 mg tablet (Claritin) 10 mg PO DAILY PRN allergy symptoms 02/16/24 Unknown History ondansetron 4 mg disintegrating 4 mg PO Q8H PRN PRN na usea/vomiting 02/16/24 Unknown History tablet cephalexin 500 mg capsule 500 mg PO Q12H #9 caps 02/19 Unknown Rx Held on 06/27/24. Instructions: Order Completed metoclopramide HCl 10 mg tablet 10 mg PO Q6H PRN nause a and 02/20/24 Unknown Rx (Reglan) vomiting #14 tabs ferrous sulfate 325 mg (65 mg 325 mg PO QODAY 06/27/24 06/26/24 History iron) tablet (Feosol) Allergy/AdvReac Type Severity Reaction Status Date / Time No Known Allergies Allergy Verified 02/20/24 18:33 Surgical History (Updated 06/27/24 @ 22:16 by Maryellen Fournier) Hx of removal of cyst Hx of removal of cyst S/P pilonidal cyst excision History of removal of cyst Hidradenitis Social History (Updated 08/05/23 @ 15:10 by Cherrie Posey LPN) Smoking Status: Never smoker alcohol intake: never substance use type: does not use
--- NOTE | 2024-06-28 02:36 | PCM.HP.OB ---
HPI - General General Date of Admission: 06/28/24 HPI Narrative RENETTA MCQUEEN, is a 24 F who presented to triage for contractions. Blood pressures ranging 140-150's/80-90's. Maternal Data Information GATO Calculator Estimated Delivery Date Method Current WG Current Estimate 07/09/24 Manual 38w 3d PFSH PFS Medical History (Updated 06/28/24 @ 02:39 by Desirae Huynh CNM) Headache Gestational diabetes Wears glasses Alcohol use Migraine headache Loss of consciousness Syncope Seizures Asthma Non-smoker H/O pilonidal cyst Home Medications ?Medication ?Instructions ?Recorded ?Last Taken ?Type albuterol sulfate 90 mcg/actuation 2 inh inhalation Q8H PRN shortness 08/26/23 Unknown History aerosol inhaler of breath or wheezing multivit-iron 18 mg-folic acid 400 1 tab PO DAILY 08/26/23 06/27/24 History mcg-calcium 500 mg-minerals tablet (Daily Multiple For Women) albuterol sulfate 90 mcg/actuation 1 - 2 puff inhalation Q4H PRN PRN 02/16/24 Unknown Rx aerosol inhaler (Ventolin HFA) Wheezing #1 device aspirin 81 mg tablet,delayed 81 mg PO DAILY 02/16/24 06/26/24 History release doxylamine 10 mg-pyridoxine (vit 2 tab PO DAILY 02/16/24 06/26/24 History B6) 10 mg tablet,delayed release loratadine 10 mg tablet (Claritin) 10 mg PO DAILY PRN allergy symptoms 02/16/24 Unknown History ondansetron 4 mg disintegrating 4 mg PO Q8H PRN PRN nausea/vomiting 02/16/24 Unknown History tablet cephalexin 500 mg capsule 500 mg PO Q12H #9 caps 02/20/24 Unknown Rx Held on 06/27/24. Instructions: Order Completed metoclopramide HCl 10 mg tablet 10 mg PO Q6H PRN nausea and 02/20/24 Unknown Rx (Reglan) vomiting #14 tabs ferrous sulfate 325 mg (65 mg 325 mg PO QODAY 06/27/24 06/26/24 History iron) tablet (Feosol) Allergy/AdvReac Type Severity Reaction Status Date / Time No Known Allergies Allergy Verified 02/20/24 18:33 Surgical History (Updated 06/27/24 @ 22:16 by Maryellen Fournier) Hx of removal of cyst Hx of removal of cyst S/P pilonidal cyst excision History of removal of cyst Hidradenitis Social History (Updated 08/05/23 @ 15:10 by Cherrie Posey LPN) Smoking Status: Never smoker alcohol intake: never substance use type: does not use History Elective abortions Hx Para 0 Spontaneous abortions Hx # Term Pregnancies Ectopic pregnancies Hx # Pregnancies Multiple births # of living children NST FHR Rate Baby A Baseline: 145 Variability:: Moderate Accelerations:: 15 x 15 Decelerations:: None NST Reactive:: Yes FHR Category:: Category I ROS Eyes Eyes: Denies blurry vision, change in vision or spots in vision ENT HEENT: Denies dizziness or headache(s) Cardiovascular Cardiovascular: Denies abdominal pain, chest pain or dyspnea Respiratory/Chest Respiratory/Chest: Denies cough, dyspnea, shortness of breath at rest or shortness of breath with exertion Gastrointestinal Gastrointestinal: Denies abdominal pain, diarrhea or vomiting Genitourinary Genitourinary: Denies change in urinary stream, difficulty urinating or dysuria Musculoskeletal Musculoskeletal: Reports none Integumentary Integumentary: Denies rash Neurologic Neurologic: Denies dizziness, headache(s), memory loss or weakness Psychiatric Psychiatric: Reports none Vital Signs Vital Signs Vital Signs: 06/27/24 20:45 06/27/24 20:45 06/27/24 20:46 Temperature Temperature Source Pulse Rate 87 Respiratory Rate Blood Pressure 140/96 H BP Systolic 140 BP Diastolic 96 Pulse Ox 97 06/27/24 20:46 06/27/24 21:03 06/27/24 21:03 Temperature Temperature Source Pulse Rate 86 87 Respiratory Rate Blood Pressure 138/92 H BP Systolic 138 BP Diastolic 92 Pulse Ox 06/27/24 21:18 06/27/24 21:18 06/27/24 21:20 Temperature Temperature Source Pulse Rate 88 Respiratory Rate Blood Pressure 145/106 H 157/92 H BP Systolic 145 157 BP Diastolic 106 92 Pulse Ox 06/27/24 21:20 06/27/24 21:35 06/27/24 21:35 Temperature Temperature Source Pulse Rate 78 80 Respiratory Rate Blood Pressure 141/90 H BP Systolic 141 BP Diastolic 90 Pulse Ox 06/27/24 21:50 06/27/24 21:50 06/27/24 22:18 Temperature Temperature Source Pulse Rate 80 Respiratory Rate Blood Pressure 149/93 H 142/90 H BP Systolic 149 142 BP Diastolic 93 90 Pulse Ox 06/27/24 22:18 06/27/24 22:34 06/27/24 22:34 Temperature Temperature Source Pulse Rate 83 87 Respiratory Rate Blood Pressure 155/89 H BP Systolic 155 BP Diastolic 89 Pulse Ox 06/27/24 23:03 06/27/24 23:03 06/27/24 23:19 Temperature Temperature Source Pulse Rate 85 Respiratory Rate Blood Pressure 150/85 H 153/91 H BP Systolic 150 153 BP Diastolic 85 91 Pulse Ox 06/27/24 23:19 06/27/24 23:33 06/27/24 23:33 Temperature Temperature Source Pulse Rate 86 88 Respiratory Rate Blood Pressure 152/89 H BP Systolic 152 BP Diastolic 89 Pulse Ox 06/27/24 23:48 06/27/24 23:48 06/28/24 00:03 Temperature Temperature Source Pulse Rate 96 Respiratory Rate Blood Pressure 146/89 H 146/82 H BP Systolic 146 146 BP Diastolic 89 82 Pulse Ox 06/28/24 00:03 06/28/24 00:19 06/28/24 00:19 Temperature Temperature Source Pulse Rate 94 100 Respiratory Rate Blood Pressure 152/78 H BP Systolic 152 BP Diastolic 78 Pulse Ox 06/28/24 00:33 06/28/24 00:33 06/28/24 00:48 Temperature Temperature Source Pulse Rate 94 Respiratory Rate Blood Pressure 148/75 H 156/83 H BP Systolic 148 156 BP Diastolic 75 83 Pulse Ox 06/28/24 00:48 06/28/24 01:04 06/28/24 01:04 Temperature Temperature Source Pulse Rate 95 93 Respiratory Rate Blood Pressure 151/89 H BP Systolic 151 BP Diastolic 89 Pulse Ox 06/28/24 01:19 06/28/24 01:19 06/28/24 01:34 Temperature Temperature Source Pulse Rate 92 Respiratory Rate Blood Pressure 140/86 H 141/86 H BP Systolic 140 141 BP Diastolic 86 86 Pulse Ox 06/28/24 01:34 06/28/24 01:40 06/28/24 01:40 Temperature Temperature Source Temporal Pulse Rate 91 Respiratory Rate 16 Blood Pressure BP Systolic BP Diastolic Pulse Ox 06/28/24 01:40 Temperature 98.6 F Temperature Source Pulse Rate Respiratory Rate Blood Pressure BP Systolic BP Diastolic Pulse Ox Weight Weight: 167 lb 9.6 oz Body Mass Index (BMI) 30.7 Physical Exam Const alert, oriented x3 and no apparent distress General Appearance: cooperative Orientation / Consciousness: awake Exam Limitations: no limitations HEENT normocephalic Head and Scalp: normal to inspection Eyes General Eye: normal appearance of both eyes Neck full ROM and no lymphadenopathy Lymph Lymphatic: no lymphadenopathy noted Chest inspection of chest normal Resp normal respiratory effort, normal air movement and clear to auscultation bilaterally Effort and Inspection: able to speak in complete sentences and symmetric chest movement Cardio regular rate and regular rhythm GI normal to inspection, nondistended, normoactive bowel sounds Manual OB Exam: presentation cephalic Back/Spine normal ROM Extremity full ROM and no calf tenderness Skin no rashes or lesions noted General Skin Exam: no breakdown Neuro oriented x3 and CN's II-XII intact bilaterally Psych mental status grossly normal and thought process normal Labs Labs Labs: Blood Type O POSITIVE Antibody Screen NEGATIVE Hct 38.8 % (37-47) Hgb 12.6 g/dL (12.0-15.0) Syphilis Total Ab Nonreactive (Nonreactive) Assessment & Plan (1) Gestational hypertension: (2) Encounter for induction of labor: (3) Uterine contractions: (4) Elevated blood pressure complicating , antepartum: (5) GDM (gestational diabetes mellitus), class A1: (6) 38 weeks gestation of : PLAN: Plan Admit to labor and delivery for induction of labor for gestational hypertension PIH labs normal No severe BP ranges Start HTN protocol CE 1.5 cm GDM A1 GBS negative Dr. Webb aware of plan of care and currently on unit
--- NOTE | 2024-06-28 03:49 | PCM.PN.CNM ---
Subjective Subjective Patient seen at bedside. Starting to feel contractions. Objective Data Objective Data Vital Signs: Vital Signs Temp Pulse Resp BP Pulse Ox 98.6 F 83 16 146/87 H 98 06/28/24 02:54 06/28/24 02:54 06/28/24 02:54 06/28/24 02:54 06/28/24 02:54 Weight: 167 lb 9.6 oz Body Mass Index (BMI) 30.7 Lab / Micro Data 06/27/24 21:54 06/27/24 21:54 Labs: Laboratory Results - last 24 hr 06/27/24 21:45: Blood Type O POSITIVE, Antibody Screen NEGATIVE 06/27/24 21:54: WBC 10.8, RBC 4.66, Hgb 12.6, Hct 38.8, MCV 83.3, MCH 27.0, MCHC 32.5, RDW Std Deviation 44.9 H, RDW Coeff of Kenny 15.0 H, Plt Count 172, MPV 12.6 H, Creatinine 0.87, Estim Creat Clear Calc 94.36, Est GFR (MDRD) Non-Af 95, Uric Acid 6.4 H, AST 27, ALT 23, U Random Total Protein 7.6, Urine Creatinine 52.30, Protein/Creatinin Ratio 145, Syphilis Total Ab Nonreactive 06/28/24 01:18: POC Glucose 80 Assessment & Plan (1) Gestational hypertension: (2) Uterine contractions: (3) Elevated blood pressure complicating , antepartum: (4) GDM (gestational diabetes mellitus), class A1: (5) 38 weeks gestation of : (6) Encounter for induction of labor: PLAN: Plan CE- 1.5/80/-1 Olpez catheter placed and filled with 30 cc N/S Pitocin IV at 2 mu/min- continue to increase per policy Pain medications if indicated Cat. 1 tracing No severe range pressures
[2024-06-28] MEDS: 0.9% Saline Lock 10 ML Syringe IV ×4 (03:56→17:33)
[2024-06-28 05:45] LABS: Bedside Glucose 84 mg/dL (74-106)
[2024-06-28] MEDS: Ondansetron 4 MG/2 ML Vial IV ×2 (06:42→17:33)
[2024-06-28] MEDS: Lactated Ringers 1,000 ML 999 ML IV (07:31)
--- NOTE | 2024-06-28 08:15 | PCM.PN.OB ---
Subjective Subjective Resting in bed. Father of baby at bedside. Coping with contractions at this time. Objective Data Objective Data Vital Signs: Vital Signs Temp Pulse Resp BP Pulse Ox 98.4 F 99 16 148/84 H 99 06/28/24 07:33 06/28/24 08:12 06/28/24 07:33 06/28/24 08:11 06/28/24 08:12 Weight: 167 lb 9.6 oz Body Mass Index (BMI) 30.7 Intake & Output: Intake and Output for Last 24 Hours 06/26/24 06/27/24 06/28/24 23:59 23:59 23:59 Intake Total 7.27 / 7.27 Balance 7.27 / 7.27 Lab / Micro Data 06/27/24 21:54 06/27/24 21:54 Labs: Laboratory Results - last 24 hr 06/27/24 21:45: Blood Type O POSITIVE, Antibody Screen NEGATIVE 06/27/24 21:54: WBC 10.8, RBC 4.66, Hgb 12.6, Hct 38.8, MCV 83.3, MCH 27.0, MCHC 32.5, RDW Std Deviation 44.9 H, RDW Coeff of Kenny 15.0 H, Plt Count 172, MPV 12.6 H, Creatinine 0.87, Estim Creat Clear Calc 94.36, Est GFR (MDRD) Non-Af 95, Uric Acid 6.4 H, AST 27, ALT 23, U Random Total Protein 7.6, Urine Creatinine 52.30, Protein/Creatinin Ratio 145, Syphilis Total Ab Nonreactive 06/28/24 01:18: POC Glucose 80 06/28/24 05:24: POC Glucose 84 Physical Exam Manual OB Exam: estimated gestational size appropriate, presentation cephalic, dilated 5, effaced 70%, station -1 and other AROM clear fluid NST FHR Rate Baby A Baseline: 135 Variability:: Moderate Accelerations:: 15 x 15 Decelerations:: None FHR Category:: Category I Uterine Activity:: every 1-4 minutes Assessment & Plan (1) Gestational hypertension: (2) Encounter for induction of labor: (3) Uterine contractions: (4) GDM (gestational diabetes mellitus), class A1: (5) 38 weeks gestation of : PLAN: Plan 1) Continue with pitocin for active management 2) Epdirual for pain management 3) AROM clear fluid 4) Continuous EFM 5) collaborative physician. Notified of above assessment and plan of care.
[2024-06-28] MEDS: fentaNYL-bupivacaine (epidural) 100 ML BAG EPIDURAL ×2 (08:23→12:43)
[2024-06-28 08:56] LABS: Bedside Glucose 82 mg/dL (74-106)
[2024-06-28 10:18] LABS: Bedside Glucose 74 mg/dL (74-106)
[2024-06-28 11:59] LABS: Bedside Glucose 80 mg/dL (74-106)
[2024-06-28] MEDS: Acetaminophen 500 MG Tablet PO (12:43)
[2024-06-28] MEDS: Lactated Ringers 1,000 ML 200 ML IV (13:27)
[2024-06-28 13:32] LABS: Bedside Glucose 69 mg/dL (74-106)
[2024-06-28] MEDS: Lidocaine 1% (20 ml mdv) 20 ML Vial INFILT (13:58)
--- NOTE | 2024-06-28 14:14 | OB.VAGDELI_ITS ---
Assessment & Plan (1) Gestational hypertension: (2) GDM (gestational diabetes mellitus), class A1: (3) Vaginal delivery: (4) First degree perineal laceration: (5) Lactating mother: Maternal Data Information GATO Calculator Estimated Delivery Date Method Current WG Current Estimate 07/09/24 Manual 38w 3d Vaginal Delivery Maternal Presentation Maternal Presentation: Medically Indicated Induction Type of Induction: Pitocin and Lopez Bulb Vaginal Delivery Information Procedure Performed: Spontaneous Vaginal Delivery Date of Procedure: 06/28/24 Pre-Procedure Diagnosis: Induction of labor, Gestational Hypertension Post-Procedure Diagnosis: , first degree perineal Type of anesthesia: Epidural and Local with 1% Lidocaine Estimated Blood Loss: 300ml Time of Delivery: 13:50 Findings Description of procedure: Progressed to complete with urge to push. Epidural ineffective for pain gurjit gemkeshawn. of viable female infant over first degree perineal laceration . APGARS 9,9 respectively. head delivered with body immediately forthcoming. Placed on maternal abdomen, strong cry. Mouth and nares suctioned for secretions. Pitocin started for active 3rd stage management. Cord doubly clamped and cut by FOB after pulsations ceased, delayed cord clamping. Placenta delivered intact via riggs, 3 vessel cord intact. Perineum inspected and revealed first degree perineal laceration. Repaired with 3.0 vicryl rapide and lidocaine. Fundus firm and hemostasis achieved. EBL 300ml. Mom and baby stable, planning to breastfeed. Family bonding well. Dr. Gamez notified of delivery. Presentation: Vertex and GERI Amniotic Membrane Rupture Type: Artificial Amniotic Fluid Description: Clear Placental Delivery Description: Spontaneous Placenta Disposition: [facility] Specimen collected: No Cord Vessel Description: 3 Vessels Cord Entanglement: None A Gender: Female (1 minute): 9 (5 minute): 9 Delayed Cord Clamping: Yes Electric Meter Tester esthetician/skin therapist: No Post Vaginal Deli Medications given after delivery: IV Pitocin and IM Pitocin Episiotomy Description: None Laceration: Perineal Extension/lac and 1st degree Complication Complications: No
[2024-06-28] MEDS: Oxytocin 15 Units/NS 250ml 15 UNITS/250 ML IV.SOLN 83 UNITS IV (14:27)
[2024-06-28 14:49] LABS: Bedside Glucose 76 mg/dL (74-106)
[2024-06-28 14:49] LABS: Bedside Glucose 109 mg/dL (74-106)
[2024-06-29] VITALS (10 sets, daily range): BP systolic 128–145; BP diastolic 66–85; PULSE 72–95; RESP 16; TEMP 36.3–36.9; O2SAT 97–98
[2024-06-29] MEDS: Ibuprofen 600 MG Tablet PO ×2 (00:36→14:22)
[2024-06-29 06:35] LABS: Absolute Neutrophil Count 12.5 X10^3/uL (2.0-7.7); Basophil# 0.03 X10^3/uL; Basophil% 0.2 % (0-1); Eosinophil# 0.14 X10^3/uL; Eosinophils% 0.8 % (0-5); Hematocrit 35.4 % (37-47); Hemoglobin 11.5 g/dL (12.0-15.0); Lymphocyte % 18.9 % (19-41); Mean Corp Hgb Conc 32.5 g/dL (32-36); Mean Corpuscular Volume 83.1 fL (81-99); Mean Platelet Vol. 12.2 fl (6.2-12.0); Monocyte# 1.41 X10^3/uL; Monocyte% 8.1 % (0-10); NRBC Flagged by Analyzer 0 % (0-5); Neutrophil # 12.49 X10^3/uL (2.7-7.7); Neutrophil % 71.4 % (47-70); Platelet Count 149 K/mm3 (150-450); RBC Distribution Width CV 15.2 % (11.6-14.6); Red Blood Count 4.26 M/mm3 (4.2-5.4); White Blood Count 17.5 K/mm3 (4.4-11.0)
[2024-06-29 06:48] LABS: Bedside Glucose 75 mg/dL (74-106)
--- NOTE | 2024-06-29 08:35 | PN.OBGYN_ITS ---
Subjective Subjective Denies complaints Objective Data Objective Data Vital Signs: Vital Signs Temp Pulse Resp BP Pulse Ox O2 Del Method 97.3 F L 91 16 132/85 H 98 Room Air 06/29/24 07:45 06/29/24 07:45 06/29/24 07:45 06/29/24 07:45 06/29/24 07:45 06/29/24 07:45 Oxygen Delivery Method Room Air Weight: 167 lb 9.6 oz Body Mass Index (BMI) 30.7 Intake & Output: Intake and Output for Last 24 Hours 06/27/24 06/28/24 06/29/24 23:59 23:59 23:59 Intake Total 1933.33 / 1933.33 Output Total 1700 / 1700 Balance 233.33 / 233.33 Lab / Micro Data 06/29/24 06:25 06/27/24 21:54 Labs: Laboratory Results - last 24 hr 06/28/24 08:04: POC Glucose 82 06/28/24 09:55: POC Glucose 74 06/28/24 11:40: POC Glucose 80 06/28/24 12:52: POC Glucose 69 L 06/28/24 13:31: POC Glucose 76 06/28/24 14:22: POC Glucose 109 H 06/29/24 06:25: WBC 17.5 H, RBC 4.26, Hgb 11.5 L, Hct 35.4 L, MCV 83.1, MCH 27.0, MCHC 32.5, RDW Std Deviation 46.0 H, RDW Coeff of Kenny 15.2 H, Plt Count 149 L, MPV 12.2 H, Immature Gran % (Auto) 0.600, Neut % (Auto) 71.4 H, Lymph % (Auto) 18.9 L, [place] % (Auto) 8.1, Eos % (Auto) 0.8, Baso % (Auto) 0.2, Absolute Neuts (auto) 12.5 H, Absolute Lymphs (auto) 3.30, Nucleated RBC % 0 06/29/24 06:27: POC Glucose 75 Physical Exam Const alert, oriented x3 and no apparent distress HEENT normocephalic GI soft to palpation, non-tender and non-distended GI Narrative: fundus firm, mid & below umbilicus Extremity normal to inspection and no calf tenderness Assessment & Plan (1) Gestational hypertension: QUALIFIERS: Trimester: unspecified trimester Qualified Code(s): O 13.9 - Gestational [-induced] hypertension without significant proteinuria, unspecified trimester COMMENT: PPD#1 (2) GDM (gestational diabetes mellitus), class A1: PLAN: Plan BP's normal to mild range. WIll continue to monitor BP's. Routine care.
[2024-06-30 02:55] VITALS: BP 133/80; PULSE 82; RESP 16; TEMP 36.8; O2SAT 98
[2024-06-30 08:28] VITALS: BP 141/90; PULSE 82
[2024-06-30 08:30] VITALS: BP 131/84; PULSE 72
--- NOTE | 2024-06-30 08:33 | PCM.PN.BLA ---
Progress Note Pain well-controlled. Average lochia. No other complaints. Physical Exam Const alert and no apparent distress Narrative: Fundus firm, below umbilicus. Assessment & Plan Assessment/Plan (1) Vaginal delivery: PLAN: day #2 working on breast-feeding. is doing well overall. Bilirubin pending. Possible discharge home later today if okay with peds.
[2024-06-30 10:00] VITALS: BP 130/84; PULSE 82; RESP 16; TEMP 36.7
[2024-06-30 13:42] VITALS: BP 143/83; PULSE 76
[2024-06-30 14:00] VITALS: BP 143/83; PULSE 76; RESP 16; TEMP 36.8
--- NOTE | 2024-06-30 14:16 | PCM.DC.SUM ---
Providers Date of Admission: 06/28/24 Primary Care Physician: No Primary Care Phys Reason For Visit: VAGINAL Diagnosis Discharge Diagnosis (1) Vaginal delivery: Status: Acute Code(s): O80 - Encounter for full-term uncomplicated delivery Plan: day #2 working on breast-feeding. is doing well overall. Bilirubin pending. Possible discharge home later today if okay with peds. Medications at Discharge Home Medications albuterol sulfate 90 mcg/actuation aerosol inhaler 2 inh inhalation Q8H PRN shortness of breath or wheezing 08/26/23 multivit-iron 18 mg-folic acid 400 mcg-calcium 500 mg-minerals tablet (Daily Multiple For Women) 1 tab PO DAILY 08/26/23 albuterol sulfate 90 mcg/actuation aerosol inhaler (Ventolin HFA) 1 - 2 puff inhalation Q4H PRN PRN Wheezing #1 device 02/16/24 loratadine 10 mg tablet (Claritin) 10 mg PO DAILY PRN allergy symptoms 02/16/24 ferrous sulfate 325 mg (65 mg iron) tablet (Feosol) 325 mg PO QODAY 06/27/24 Hospital Course Operations None Procedures None Summary of Care Provided Minutes Spent on Discharge: 18 Hospital Course: 24-year-old female admitted in spontaneous labor on 06/28/2024 has spontaneous vaginal delivery on the same date. By day #2 she is ambulating, urinating tolerating regular diet without difficulty. She was discharged home with routine instructions and follow-up. Weight / BMI Weight Weight: 76.022 kg Body Mass Index (BMI) 30.7 ABG / Lab / Microbiology Data 06/29/24 06:25 06/27/24 21:54 D/C Instructions May resume sexual activity in: 6 weeks DC O2, CPAP, BIPAP Needs Home O2 Discharge instructions: No Please Follow Up With: Emmy Abraham MD When: Follow up with our office in 1-2 and 6 weeks or as needed. [phone] Meaningful Use Info Meaningful Use Meaningful Use Diagnoses (Choose all that apply): None applicable Ischemic Stroke Statin Dosing Therapy Reference: STATIN DOSE THERAPY REFERENCE: * Patients > 75 years receive moderate or high dose statin therapy. * Patients 75 years or YOUNGER should receive HIGH intensity statin dose unless contraindicated. You will be required to document reason for non-treatment if statin daily dose does not meet guidelines. HIGH DOSE STATIN THERAPY DAILY Atorvastatin > than or = to 40 mg Rosuvastatin > than or = to 20 mg Amlodipine + Atorvastatin > than or = to 2.5/40 mg Ezetimibe + Simvastatin 10/80 mg Simvastatin 80mg Discharge Plan Admission Admit Date/Time: 06/28/24 01:00 Primary Reason for Your Visit: Labor and vaginal deliery Attending Provider: Mariel Ching Primary Care Provider: Care Physician,No Primary Discharge Orders/Prescriptions Prescriptions: Continued Daily Multiple For Women 18 mg iron-400 mcg-500 mg Ca tablet 1 tab PO DAILY albuterol sulfate 90 mcg/actuation HFA aerosol inhaler 2 inh inhalation Q8H PRN (Reason: shortness of breath or wheezing) loratadine [Claritin] 10 mg tablet 10 mg PO DAILY PRN (Reason: allergy symptoms) albuterol sulfate [Ventolin HFA] 90 mcg/actuation HFA aerosol inhaler 1 - 2 puff inhalation Q4H PRN PRN (Reason: Wheezing) Qty: 1 0RF ferrous sulfate [Feosol] 325 mg (65 mg iron) tablet 325 mg PO QODAY Discontinued aspirin 81 mg tablet,delayed release (DR/EC) 81 mg PO DAILY ondansetron 4 mg tablet,disintegrating 4 mg PO Q8H PRN PRN (Reason: nausea/vomiting) doxylamine-pyridoxine (vit B6) 10-10 mg tablet,delayed release (DR/EC) 2 tab PO DAILY metoclopramide HCl [Reglan] 10 mg tablet 10 mg PO Q6H PRN (Reason: nausea and vomiting) Qty: 14 0RF cephalexin 500 mg capsule 500 mg PO Q12H Qty: 9 0RF Referrals / Follow Up: Care Physician,No Primary [Primary Care Provider] - Disposition Disposition (needs filled in before D/C Order can be placed): Home, Self Care
== END 2024-06-30 16:30 | disposition home or self-care (01) | DRG 807 ==
LOC: WPOUT 01:07 → WP 01:07
PROVIDERS: Advanced Practice Midwife; Admitting Provider Advanced Practice Midwife; Referring Provider Advanced Practice Midwife; Visit Provider Advanced Practice Midwife
DX: O13.4 Gestational [pregnancy-induced] hypertension without significant proteinuria, complicating childbirth (principal); Z37.0 Single live birth; O24.420 Gestational diabetes mellitus in childbirth, diet controlled; O70.0 First degree perineal laceration during delivery; Z3A.38 38 weeks gestation of pregnancy
CPT/HCPCS: 59025; 59050; 82565; 82570; 82962; 84156; 84450; 84460; 84550; 85007; 85025; 85027; 86780; 86850; 86900; 86901; 99221; A4216; G0378; J2405

== ENCOUNTER 2024-08-13 20:18 | Emergency (ER) | payer OTHER, SELFPAY ==
[2024-08-13 20:18] VITALS: BP 127/83; PULSE 70; RESP 16; TEMP 36.6; O2SAT 100; BMI 25.7
--- NOTE | 2024-08-13 20:29 | EKG12_ITS ---
Test Reason : CP Blood Pressure : */* mmHG Vent. Rate : 90 BPM Atrial Rate : 90 BPM P-R Int : 158 ms QRS Dur : 88 ms QT Int : 370 ms P-R-T Axes : 61 -20 18 degrees QTcB Int : 452 ms Normal sinus rhythm Normal ECG Confirmed by JOHN CASTANEDA, CHRISTO ([id number]), visual effects editor AMBREEN EL ([id number]) on 08/20/2024 12:39:53 PM Referred By: BB Confirmed By: CHRISTO LOPEZ MD
--- NOTE | 2024-08-13 20:30 | ED.VIS.CHEST ---
HPI History of Present Illness Chief Complaint: Chest Pain Informant: patient and spouse/S.O. Narrative Narrative: 24-year-old female several days of intermittent chest pain. She feels like cramping. Sometimes on the left side other times is on the right side. She had an episode of tenderness ago but it is gone right now. Is not associated with dyspnea, wheezing, coughing but she has been having a lot of seasonal allergies and states today was the worst day. She delivered a baby 6 weeks ago, she had gestational hypertension and gestational diabetes but otherwise the delivery was uncomplicated and she has had no major issues since then. No leg pain or swelling. When she has the chest discomfort she denies dyspnea, palpitations, or any pleuritic component. She cannot think of anything that is obviously making it better or worse. No lightheadedness or syncope. No fevers or chills. She does have a history of asthma, she has not tried using her albuterol inhaler for any of the symptoms because it does not necessarily feel like that. [facility] Medical History First degree perineal laceration Vaginal delivery Gestational hypertension GDM (gestational diabetes mellitus), class A1 Headache Gestational diabetes Wears glasses Alcohol use Migraine headache Loss of consciousness Syncope Seizures Asthma Non-smoker H/O pilonidal cyst Home Medications ?Medication ?Instructions ?Recorded ?Last Taken ?Type albuterol sulfate 90 mcg/actuation 2 inh inhalation Q8H PRN shortness 08/26/23 Unknown History aerosol inhaler of breath or wheezing multivit-iron 18 mg-folic acid 400 1 tab PO DAILY 08/26/23 06/27/24 History mcg-calcium 500 mg-minerals tablet (Daily Multiple For Women) albuterol sulfate 90 mcg/actuation 1 - 2 puff inhalation Q4H PRN PRN 02/16/24 Unknown Rx aerosol inhaler (Ventolin HFA) Wheezing #1 device loratadine 10 mg tablet (Claritin) 10 mg PO DAILY PRN allergy symptoms 02/16/24 Unknown History ferrous sulfate 325 mg (65 mg 325 mg PO QODAY 06/27/24 06/26/24 History iron) tablet (Feosol) Allergy/AdvReac Type Severity Reaction Status Date / Time No Known Allergies Allergy Verified 08/13/24 20:19 Surgical History Hx of removal of cyst Hx of removal of cyst S/P pilonidal cyst excision History of removal of cyst Hidradenitis Social History (Updated 08/13/24 @ 21:03 by Tova Rhodes) household members: spouse housing: house Smoking Status: Never smoker alcohol intake: never substance use type: does not use ROS ROS ED Constitutional Constitutional ED: Denies chills or fever(s) Eyes Eyes: Denies change in vision or diplopia ENT ENT ED: Reports nasal congestion and rhinorrhea; Denies sore throat Cardiovascular Cardiovascular: Reports as per HPI and chest pain; Denies palpitations Respiratory/Chest Respiratory/Chest: Denies cough or dyspnea Gastrointestinal Gastrointestinal: Denies abdominal pain, diarrhea, nausea or vomiting Genitourinary Genitourinary ED: Denies dysuria or hematuria Musculoskeletal Musculoskeletal: Denies back pain or neck pain Integumentary Denies abscess or rash Neurologic Neurologic: Denies headache(s), paresthesias or weakness Psychiatric Psychiatric: Denies anxiety or suicidal thoughts EXAM Physical Exam Const Vital Signs: 08/13/24 20:18 08/13/24 21:02 08/13/24 21:02 Temperature 98 F Temperature Source Oral Pulse Rate 70 Respiratory Rate 16 Respiratory Effort Normal Non-Labored Blood Pressure 127/83 H Blood Pressure Mean 97 Pulse Ox 100 99 Oxygen Delivery Method Room Air Room Air 08/13/24 21:18 Temperature Temperature Source Pulse Rate 75 Respiratory Rate 16 Respiratory Effort Blood Pressure 118/78 Blood Pressure Mean 91 Pulse Ox 98 Oxygen Delivery Method Positive well nourished and well developed Constitutional Narrative: Well-appearing in no distress, conversive in full sentences General Appearance ED: well developed and NAD HEENT Reports moist mucous membranes normocephalic and atraumatic Eyes PERRL and EOMs intact bilaterally Neck full ROM and supple Resp normal respiratory effort and clear to auscultation bilaterally Cardio regular rate, regular rhythm and no murmurs Rate: Negative for tachycardic GI non-tender and non-distended Auscultation: normoactive bowel sounds Palpation: soft Back/Spine no CVA tenderness General Back: other FROM Extremity normal to inspection General Extremety ED: Negative for edema, pulses abnormal or tenderness General Extremity: Negative for edema or pulses abnormal Neuro oriented x3, CN's II-XII intact bilaterally, no sensory deficits noted and gait normal Sensorium / Orientation: awake and alert Motor Exam: strength 5/5 throughout Psych mental status grossly normal Skin no rashes or lesions noted and no wounds Heart Score History: Slightly/Non-Suspicious ECG: Normal Age: </= 45 years Risk Factors: No Risk Factors Troponin: </= Normal Limit Score: 0 MDM MDM MDM Narrative Medical decision making narrative: EKG is completely normal. Labs are normal including troponin less than 6, therefore given how long the symptoms been going on for I do not think we need to wait for a delta. Urine shows no proteinuria, her blood pressure is 118/78 and the rest of her vital signs are also normal, chest x-ray 2 views of my interpretation is normal and radiology is in agreement. She had no telemetry events, she had no recurrent symptoms while being monitored in the ER, and her PERC score is 0, confirming that we do not need to perform further workup in order to rule out pulmonary embolus in this situation. Therefore I reassured patient, my recommendations are that if the chest discomfort returns I would try using her albuterol inhaler as it is possible this is related to her asthma and significant allergic rhinitis symptoms. Follow-up advised if symptoms continue she is comfortable with that plan. Lab Data Attestation: I reviewed the patient's lab results. Labs: Laboratory Results - last 24 hr 08/13/24 08/13/24 20:26 20:46 WBC 9.1 RBC 5.40 Hgb 14.2 Hct 43.4 MCV 80.4 L MCH 26.3 L MCHC 32.7 RDW Std Deviation 38.1 RDW Coeff of Kenny 13.2 Plt Count 203 MPV 11.3 Immature Gran % (Auto) 0.200 Neut % (Auto) 50.4 Lymph % (Auto) 36.7 [place] % (Auto) 8.0 Eos % (Auto) 4.5 Baso % (Auto) 0.2 Absolute Neuts (auto) 4.6 Absolute Lymphs (auto) 3.35 Nucleated RBC % 0 Sodium 139 Potassium 3.7 Chloride 101 Carbon Dioxide 25.2 Anion Gap 13 BUN 16 Creatinine 0.73 Estim Creat Clear Calc 103.48 Est GFR (MDRD) Non-Af 117 BUN/Creatinine Ratio 22.5 H Glucose 130 H Calcium 10.0 Total Bilirubin 0.21 AST 25 ALT 23 Alkaline Phosphatase 114 H Troponin T High Sens < 6 Total Protein 7.8 Albumin 4.4 Globulin 3.4 Albumin/Globulin Ratio 1.3 Urine Color Straw Urine Clarity Clear Urine pH 6.5 Ur Specific [place] 1.005 Urine Protein Negative Urine Glucose (UA) Normal Urine Ketones Negative Urine Occult Blood Negative Urine Nitrite Negative Urine Bilirubin Negative Urine Urobilinogen Normal Ur Leukocyte Esterase Negative Urine RBC 0-5 SEEN Urine WBC 0-5 SEEN Ur Squamous Epith Cells 0-5 SEEN Urine Bacteria 0 SEEN Urine Mucus 0 SEEN Radiography Diagnostic Testing: Clinical Impression(s) from Imaging Studies Chest X-Ray 08/13/24 21:00 IMPRESSION: NO ACUTE FINDINGS. Reading Location: [facility] Rhythm Strip Rhythm Strip: Sinus Rhythm Rate: 70 Ectopy: None EKG Initial EKG: Attestation: I personally reviewed and interpreted this EKG as follows: Interpretation: Sinus Rhythm and No Acute Injury Pattern Comments: Nml axis & intervals; nml EKG Discharge Plan Triage Chief Complaint: Chest Pain ED Provider: Benito Her Dx/Rx/DC Orders Clinical Impression: Intermittent chest pain, Allergic rhinitis, Asthma Instructions: ED Chest Pain, Noncardiac Prescriptions: No Action Daily Multiple For Women 18 mg iron-400 mcg-500 mg Ca tablet 1 tab PO DAILY albuterol sulfate 90 mcg/actuation HFA aerosol inhaler 2 inh inhalation Q8H PRN (Reason: shortness of breath or wheezing) loratadine [Claritin] 10 mg tablet 10 mg PO DAILY PRN (Reason: allergy symptoms) albuterol sulfate [Ventolin HFA] 90 mcg/actuation HFA aerosol inhaler 1 - 2 puff inhalation Q4H PRN PRN (Reason: Wheezing) Qty: 1 0RF ferrous sulfate [Feosol] 325 mg (65 mg iron) tablet 325 mg PO QODAY Primary Care Provider: Care Physician,No Primary Referrals: Doctor,Your [Non-Staff] - 1 Week if not improving Print Language: Jordanian Disposition Disposition: Home, Self Care
[2024-08-13 20:53] LABS: Bacteria 0 SEEN /hpf (None Seen); Mucous, Urine 0 SEEN /hpf (<or=2+)
[2024-08-13 20:57] LABS: Absolute Lymphocyte Count 3.35 X10^3/uL (0.83-4.51); Absolute Neutrophil Count 4.6 X10^3/uL (2.0-7.7); Basophil# 0.02 X10^3/uL; Basophil% 0.2 % (0-1); Eosinophil# 0.41 X10^3/uL; Eosinophils% 4.5 % (0-5); Hematocrit 43.4 % (37-47); Hemoglobin 14.2 g/dL (12.0-15.0); Lymphocyte # 3.35 X10^3/ul (0.83-4.51); Lymphocyte % 36.7 % (19-41); Mean Corp Hgb Conc 32.7 g/dL (32-36); Mean Corpuscular Hgb 26.3 pg (27.0-32.0); Mean Corpuscular Volume 80.4 fL (81-99); Mean Platelet Vol. 11.3 fl (6.2-12.0); Monocyte# 0.73 X10^3/uL; NRBC Flagged by Analyzer 0 % (0-5); Neutrophil # 4.59 X10^3/uL (2.7-7.7); Neutrophil % 50.4 % (47-70); Platelet Count 203 K/mm3 (150-450); RBC Distribution Width CV 13.2 % (11.6-14.6); RBC Distribution Width SD 38.1 fl (35.1-43.9); White Blood Count 9.1 K/mm3 (4.4-11.0)
[2024-08-13 21:00] LABS: Color, Urine Straw (Yellow); Glucose, Dipstick Normal (Normal); Ketone-Dipstick Negative (Negative); Leukocyte Esterase-Dipstick Negative /ul (Negative); Nitrite-Dipstick Negative (Negative); Occult Blood-Urine Negative /ul (Negative); Protein-Dipstick Negative (Negative); Specific Gravity, Urine 1.005 (1.002-1.030); Urine Bilirubin Dipstick Negative (Negative); Urine Clarity Clear (Clear); Urine Urobilinogen Normal (Normal); Urine pH 6.5 (5.0 - 8.0)
--- NOTE | 2024-08-13 21:00 | RAD_ITS ---
PROCEDURE: CHEST PA AND LATERAL 08/13/2024 REASON FOR EXAM: CHEST PAIN TECHNIQUE: Frontal and lateral views of the chest. COMPARISON: CT chest 02/16/2024 FINDINGS: Hardware: None Heart: The heart size is normal. Mediastinum: The mediastinal contour is unremarkable. Lungs: The lungs are clear. Bones: The bones are unremarkable. RAD/Chest PA and Lateral IMPRESSION: NO ACUTE FINDINGS. Reading Location: [facility]
[2024-08-13 21:02] VITALS: O2SAT 99
[2024-08-13 21:13] LABS: Red Blood Cells-Urine 0-5 SEEN /hpf (0-5); Squamous Epithelial Cells - UA 0-5 SEEN /hpf (5-10); White Blood Cells 0-5 SEEN /hpf (0-5)
[2024-08-13 21:18] VITALS: BP 118/78; PULSE 75; RESP 16; O2SAT 98
[2024-08-13 21:41] LABS: ALB/GLOB Ratio 1.3 RATIO (0.9-2.4); AST(SGOT) 25 U/L (<=31); Alanine Aminotransfer ALT/SGPT 23 U/L (<=34); Albumin, Serum 4.4 g/dL (3.5-5.0); Alkaline Phosphatase 114 U/L (35-104); Anion Gap 13 (5-15); BUN 16 mg/dL (4-19); BUN/Creat Ratio 22.5 RATIO (10-20); Carbon Dioxide 25.2 mmol/L (21.0-32.0); Chloride 101 mmol/L (98-108); Creatinine, Serum 0.73 mg/dL (0.70-1.20); EST Glomerular Filtration Rate 117 (>60); Estimated Creatinine Clearance 103.48 ml/min (50-250); Globulin 3.4 g/dL (2.2-4.2); Glucose 130 mg/dL (70-99); Potassium 3.7 mmol/L (3.3-5.1); Protein, Total 7.8 g/dL (5.9-8.4); Sodium Level 139 mmol/L (133-145); Total Bilirubin 0.21 mg/dL (0.00-1.30); Troponin T High Sensitivity < 6 ng/L (<=14)
[2024-08-13 22:00] VITALS: BP 116/78; PULSE 78; RESP 14; TEMP 36.6; O2SAT 98
== END 2024-08-13 22:08 | disposition home or self-care (01) ==
PROVIDERS: Emergency Provider Emergency Medicine; Visit Provider Emergency Medicine
DX: R07.9 Chest pain, unspecified (principal); J30.9 Allergic rhinitis, unspecified
CPT/HCPCS: 71046; 80053; 81001; 84484; 85025; 93005; 99283; A4216